=== PATIENT | female | born 1930 | race Asian ===

== ENCOUNTER 2017-03-12 08:22 | Emergency (ER) | payer OTHER ==
[~2017-03-12] VITALS: Ht 152.4 cm; Wt 47.8 kg
[~2017-03-12 08:22] MED LIST: ADV25050 INH; AMLO-147 PO; CALC500T99 PO; CEPH500C PO; FAMO-18 PO; LEVO75TA5 PO; LOSA100T7 PO; METF500T4 PO; OMEG-135 PO; TRAM50TA2 PO
[2017-03-12 08:24] VITALS: Ht 152.4 cm; Wt 47.8 kg
[2017-03-12] MEDS ORDERED: FAMOTIDINE 20 MG INJ IV STA (09:02)
[2017-03-12] MEDS ORDERED: SOD CHLORIDE 0.9% 500 ML IV STA (09:02)
[2017-03-12] MEDS ORDERED: ONDANSETRON 4 MG INJ IV STA (09:02)
[2017-03-12 09:40] LABS: ADD SCAN DIFF NO
[2017-03-12 09:42] LABS: BASOPHILS % 0.2 % (0.0-2.0); EOSINOPHILS % 0.1 % (0.0-7.0); HEMATOCRIT 44.5 % (37.0-47.0); HEMOGLOBIN 13.8 g/dl (12.0-16.0); LYMPHOCYTES # 0.8 10^3/ul (0.8-2.9); LYMPHOCYTES % 6.5 % (15.0-51.0); MEAN CORPUSCULAR HEMOGLOBIN 22.5 pg (29.0-33.0); MEAN CORPUSCULAR VOLUME 72.5 fl (82.0-101.0); MEAN PLATELET VOLUME 11.2 fl (7.4-10.4); MONOCYTE # 0.5 10^3/ul (0.3-0.9); MONOCYTES % 4.1 % (0.0-11.0); NEUTROPHIL # 10.7 10^3/ul (1.6-7.5); NEUTROPHILS % 88.7 % (39.0-77.0); PLATELET COUNT 189 10^3/UL (140-415); RED BLOOD COUNT 6.14 10^6/ul (4.20-5.40); RED CELL DISTRIBUTION WIDTH 13.8 % (11.5-14.5)
[2017-03-12 09:54] LABS: ALBUMIN 4.4 g/dl (3.3-4.9)
[2017-03-12 09:55] LABS: CHLORIDE 100 mmol/L (97-110); POTASSIUM 3.8 mmol/L (3.5-5.1); SODIUM 143 mmol/L (135-144)
[2017-03-12] MEDS ORDERED: ADV10050 INHALATION (09:56)
[2017-03-12] MEDS ORDERED: FAMO40TA52 PO (09:56)
[2017-03-12] MEDS ORDERED: AMLO5TAB4 PO (09:56)
[2017-03-12 09:57] LABS: ALBUMIN/GLOBULIN RATIO 1.02; ALKALINE PHOSPHATASE 86 IU/L (42-121); ANION GAP 22 (8-16); ASPARTATE AMINO TRANSFERASE 101 IU/L (15-46); BILIRUBIN,INDIRECT 1.6 mg/dl (0-1.1); BILIRUBIN,TOTAL 1.6 mg/dl (0.2-1.3); BLOOD UREA NITROGEN 14 mg/dl (7-20); CARBON DIOXIDE 25 mmol/L (21-31); CREATININE 0.84 mg/dl (0.44-1.00); TOTAL PROTEIN 8.7 g/dl (6.1-8.1)
[2017-03-12] MEDS ORDERED: RIVA20TA PO (09:57)
[2017-03-12] MEDS ORDERED: METO25TA7 PO (09:57)
[2017-03-12 09:58] LABS: ALANINE AMINOTRANSFERASE 61 IU/L (13-69); CALCIUM 9.9 mg/dl (8.4-10.2); GLUCOSE 195 mg/dl (70-220)
[2017-03-12 10:18] LABS: TROPONIN-I < 0.012 ng/ml (0.00-0.12)
[2017-03-12] MEDS ORDERED: SOD CHLORIDE 0.9% 100 ML ONE (12:02)
[2017-03-12] MEDS ORDERED: IODIXANOL LOCM 100 ML BTL ONE (12:02)
--- NOTE | 2017-03-12 12:42 | RADRPT ---
PROCEDURE: CT Abdomen and Pelvis with contrast. CLINICAL INDICATION: Abdominal pain. TECHNIQUE: CT scan of the abdomen and pelvis with contrast was performed on a multi-detector high- resolution CT scanner. The patient was scanned following the uncomplicated intravenous administrati on of 100 cc of Visipaque 320. Coronal and sagittal reformatted images were obtained from the axial source images. Images were reviewed on a high-resolution PACS workstation. The total exam CTDI equa ls 11.58 mGy and the total exam DLP equals 621.06 mGy-cm. One or more of the following dose reduction techniques were used: Automated exposure control. Adjustment of the mA and/or kV according to patient size. Use of iterative reconstruction technique. COMPARISON: None. FINDINGS: CT abdomen: The lung bases are remarkable for mild bibasilar atelectasis/linear scarring. The heart size is enl arged, without pericardial thickening or effusion. There is a nodular contour of the liver in keeping with cirrhosis. No suspicious focal liver mass i s identified. There are small caliber paraesophageal , perigastric and perisplenic varices. The po rtal venous system is patent. There is no ascites. The spleen is normal in size. The stomach is partially collapsed, but is grossly unremarkable. The pancreas as visualized is norm al. The gallbladder is surgically absent. There is no evidence for biliary dilatation. The adrena l glands are symmetric and normal. The kidneys are symmetrically unremarkable as well. No renal ca lculus or obstructive uropathy or mass lesion is seen. There is approximately 1.5 cm exophytic corti easton cyst in the lower pole left kidney. The aorta is of normal caliber. Aortic vascular calcifications are present. There is no retroperit veliz lymphadenopathy. The sarmad hepatis region is clear. The bowel and mesentery, as visualized, are equally unremarkable. There is a small hiatal hernia. Scattered colonic diverticula are seen wit hout evidence of acute diverticulitis. CT pelvis: The small bowel loops situated within the pelvis are unremarkable. There is a normal appendix. Uteru s is surgically absent. The pelvic sidewalls and inguinal regions are clear. The sigmoid colon and rectum are unremarkable. No mass, lymphadenopathy, or free fluid is seen. No acute inflammation i s seen. The bladder is normal. The surrounding osseous structures are unremarkable. No osteolytic or osteoblastic lesion is detected. IMPRESSION: 1. Morphologic changes of cirrhosis. No suspicious focal liver mass is identified. 2. Small caliber paraesophageal, perigastric and perisplenic varices. Portal venous system is her nt. 3. No ascites. 4. Small hiatal hernia. 5. A few scattered colonic diverticuli without evidence of acute diverticulitis. 6. Aortoiliac atherosclerosis. 7. Normal appendix. RPTAT: BB .Ottoniel Oneill MD, MD Date Time Electronically viewed and signed by .Ottoniel Oneill MD, on 03/12/2017 12:41 .O/
[2017-03-12] MEDS ORDERED: RANI150T9 PO (13:39)
[2017-03-12] MEDS ORDERED: ONDA4TAB14 PO (13:39)
--- NOTE | 2017-03-12 13:48 | ERD ---
ER Documentation Chief Complaint Date/Time DATE: 03/12/17 TIME: 13:45 Chief Complaint vomiting and diarrhea HPI This is an 86-year-old female who had 3 episodes of nonbilious nonbloody vomiting today. First episode was at 2 AM. She said that she has had one mild loose stool. She has no abdominal pain no fever. Patient states she thinks she ate some bad food. She has no chest pain shortness of breath no back pain dysuria hematuria. Currently she is asymptomatic and says she feels okay patient has multiple medical problems including atrial fibrillation, diabetes, high cholesterol, thyroid ROS All systems reviewed and are negative except as per history of present illness. Medications Home Meds Active Scripts Ranitidine Hcl* (Zantac*) 150 Mg Tablet, 150 MG PO BID Y for EPIGASTRIC PAIN, # 30 TAB Prov:CHESTER WHITNEY DO 03/12/17 Ondansetron (Ondansetron Odt) 4 Mg Tab.rapdis, 4 MG PO Q6H Y for NAUSEA AND/OR VOMITING, #10 TAB Prov:CHESTER WHITNEY DO 03/12/17 Reported Medications Metoprolol Succinate* (Toprol XL*) 25 Mg Tab.sr.24h, 25 MG PO DAILY, #30 TAB 03/12/17 Rivaroxaban* (Xarelto*) 20 Mg Tablet, 20 MG PO WITH DINNER, TAB 03/12/17 Salmeterol Xinaf-Fluticasone* (Advair*) 100/50 Diskus Inhaler, 1 INH INHALATION BID, #1 INHALER 03/12/17 Famotidine* (Famotidine*) 40 Mg Tablet, 40 MG PO BID, #60 TAB 03/12/17 Amlodipine Besylate* (Norvasc*) 5 Mg Tablet, 5 MG PO DAILY, TAB 03/12/17 Losartan Potassium* (Losartan Potassium*) 100 Mg Tablet, 100 MG PO DAILY, TAB 12/21/14 Levothyroxine Sodium* (Levothyroxine Sodium*) 75 Mcg Tablet, 75 MCG PO AC BREAKFAST, TAB 12/21/14 Metformin* (Glucophage*) 500 Mg Tab, 500 MG PO BID, TAB 12/21/14 Discontinued Reported Medications Cephalexin* (Cephalexin*) 500 Mg Capsule, 500 MG PO Q6, CAP 12/21/14 Famotidine* (Pepcid*) 20 Mg Tablet, 20 MG PO DAILY Y for GASTROINTESTINAL UPSET , TAB 12/21/14 Tramadol HCl (Tramadol HCl) 50 Mg Tab, 50 MG PO DAILY Y for SEVERE PAIN LEVEL 7- 10, TAB 12/21/14 Fish Oil* (Fish Oil*) 1,000 Mg Cap, 1000 MG PO DAILY, CAP 12/21/14 Calcium Carbonate ([id number]) 1 Tab Tablet, 1 TAB PO DAILY 12/21/14 Salmeterol Xinaf/Fluticasone* (Advair*) 250-50 Diskus Inhaler, 1 INH INH BID, INH 12/21/14 Amlodipine Besylate* (Amlodipine Besylate*) 10 Mg Tablet, 10 MG PO DAILY, TAB 12/21/14 Allergies Allergies: Coded Allergies: Sulfa (Sulfonamide Antibiotics) (Verified Allergy, Severe, 03/12/17) PMhx/Soc History of Surgery: No Anesthesia Reaction: No Hx Neurological Disorder: No Hx Respiratory Disorders: No Hx Cardiac Disorders: No Hx Psychiatric Problems: No Hx Miscellaneous Medical Probl: Yes Hx Alcohol Use: No Hx Substance Use: No Hx Tobacco Use: No Smoking Status: Never smoker FmHx Family History: No coronary disease Physical Exam Vitals Vital Signs Date Time Temp Pulse Resp B/P Pulse Ox O2 Delivery O2 Flow Rate FiO2 03/12/17 08:24 97.7 109 20 142/81 99 Physical Exam Const: Well-developed, well-nourished Head: Atraumatic, normocephalic Eyes: Normal Conjunctiva, PERRLA, EOMI, normal sclera, no nystagmus ENT: Normal External Ears, Nose and Mouth, moist mucus membranes. Neck: Full range of motion. No meningismus, no lymphadenopathy. Resp: Clear to auscultation bilaterally, no wheezing, rhonchi, rales Cardio: Regular rate and rhythm, no murmurs, S1 S2 present] Abd: Soft, non tender x 4, non distended. Normal bowel sounds, no guarding or rebound, no pulsitile abdominal masses or bruits Skin: No petechiae or rashes, no ecchymosis , no maculopapular rash Back: No midline or flank tenderness Ext: No cyanosis, or edema, FROM x 4, normal inspection, neurovascularly intact x 4 Neur: Awake and alert, STR 5/5 x 4, sensation intact x 4, no focal findings, cerebellum intact Psych: Normal Mood and Affect Result Diagram: 03/12/1792603/12/17926 Results 24 hrs Laboratory Tests Test 03/12/17 09:27 White Blood Count 12.010^3/ul Red Blood Count 6.1410^6/ul Hemoglobin 13.8g/dl Hematocrit 44.5% Mean Corpuscular Volume 72.5fl Mean Corpuscular Hemoglobin 22.5pg Mean Corpuscular Hemoglobin Concent 31.0g/dl Red Cell Distribution Width 13.8% Platelet Count 41312^3/UL Mean Platelet Volume 11.2fl Neutrophils % 88.7% Lymphocytes % 6.5% Monocytes % 4.1% Eosinophils % 0.1% Basophils % 0.2% Nucleated Red Blood Cells % 0.0/100WBC Neutrophils # 10.710^3/ul Lymphocytes # 0.810^3/ul Monocytes # 0.510^3/ul Eosinophils # 0.010^3/ul Basophils # 0.010^3/ul Nucleated Red Blood Cells # 0.010^3/ul Sodium Level 143mmol/L Potassium Level 3.8mmol/L Chloride Level 100mmol/L Carbon Dioxide Level 25mmol/L Anion Gap 22 Blood Urea Nitrogen 14mg/dl Creatinine 0.84mg/dl Glucose Level 195mg/dl Calcium Level 9.9mg/dl Total Bilirubin 1.6mg/dl Direct Bilirubin 0.00mg/dl Indirect Bilirubin 1.6mg/dl Aspartate Amino Transf (AST/SGOT) 101IU/L Alanine Aminotransferase (ALT/SGPT) 61IU/L Alkaline Phosphatase 86IU/L Troponin I < 0.012ng/ml Total Protein 8.7g/dl Albumin 4.4g/dl Globulin 4.30g/dl Albumin/Globulin Ratio 1.02 Lipase 147U/L Current Medications Medications (Trade) Dose Ordered Sig/Amandeep Route PRN Reason Start Time Stop Time Status Last Admin Dose Admin Sodium Chloride (NS) 500 ml @ 500 mls/hr Q1H STAT IV 03/12/17 09:02 03/12/17 10:01 DC Ondansetron HCl (Zofran Inj) 4 mg ONCE STAT IV 03/12/17 09:02 03/12/17 09:04 DC 03/12/17 12:28 Famotidine (Pepcid Iv) 20 mg ONCE STAT IV 03/12/17 09:02 03/12/17 09:04 DC 03/12/17 12:28 IV Flush 10 ml 10 ml STK-MED ONCE .ROUTE 03/12/17 12:02 03/12/17 12:03 DC 03/12/17 12:22 Sodium Chloride (NS) 100 ml @ ud STK-MED ONCE .ROUTE 03/12/17 12:02 03/12/17 12:03 DC 03/12/17 12:22 Iodixanol (Visipaque Locm) 100 ml STK-MED ONCE .ROUTE 03/12/17 12:02 03/12/17 12:03 DC 03/12/17 12:22 Procedures/MDM EKG: Rate/Rhythm: Atrial fibrillation with a heart rate of 103 QRS, ST, QT: NORMAL ME, QRS, QT] Impression: Atrial fibrillation PROCEDURE: CT Abdomen and Pelvis with contrast. CLINICAL INDICATION: Abdominal pain. TECHNIQUE: CT scan of the abdomen and pelvis with contrast was performed on a multi-detector high-resolution CT scanner. The patient was scanned following the uncomplicated intravenous administration of 100 cc of Visipaque 320. Coronal and sagittal reformatted images were obtained from the axial source images. Images were reviewed on a high-resolution PACS workstation. The total exam CTDI equals 11.58 mGy and the total exam DLP equals 621.06 mGy-cm. One or more of the following dose reduction techniques were used: Automated exposure control. Adjustment of the mA and/or kV according to patient size. Use of iterative reconstruction technique. COMPARISON: None. FINDINGS: CT abdomen: The lung bases are remarkable for mild bibasilar atelectasis/linear scarring. The heart size is enlarged, without pericardial thickening or effusion. There is a nodular contour of the liver in keeping with cirrhosis. No suspicious focal liver mass is identified. There are small caliber paraesophageal , perigastric and perisplenic varices. The portal venous system is patent. There is no ascites. The spleen is normal in size. The stomach is partially collapsed, but is grossly unremarkable. The pancreas as visualized is normal. The gallbladder is surgically absent. There is no evidence for biliary dilatation. The adrenal glands are symmetric and normal. The kidneys are symmetrically unremarkable as well. No renal calculus or obstructive uropathy or mass lesion is seen. There is approximately 1.5 cm exophytic cortical cyst in the lower pole left kidney. The aorta is of normal caliber. Aortic vascular calcifications are present. There is no retroperitoneal lymphadenopathy. The sarmad hepatis region is clear. The bowel and mesentery, as visualized, are equally unremarkable. There is a small hiatal hernia. Scattered colonic diverticula are seen without evidence of acute diverticulitis. CT pelvis: The small bowel loops situated within the pelvis are unremarkable. There is a normal appendix. Uterus is surgically absent. The pelvic sidewalls and inguinal regions are clear. The sigmoid colon and rectum are unremarkable. No mass, lymphadenopathy, or free fluid is seen. No acute inflammation is seen. The bladder is normal. The surrounding osseous structures are unremarkable. No osteolytic or osteoblastic lesion is detected. IMPRESSION: 1. Morphologic changes of cirrhosis. No suspicious focal liver mass is identified. 2. Small caliber paraesophageal, perigastric and perisplenic varices. Portal venous system is patent. 3. No ascites. 4. Small hiatal hernia. 5. A few scattered colonic diverticuli without evidence of acute diverticulitis. 6. Aortoiliac atherosclerosis. 7. Normal appendix. RPTAT: BB .Ottoniel Oneill MD, Date Time Electronically viewed and signed by .Ottoniel Oneill MD, on 03/12/2017 12:41 .O/ CC: CHESTER WHITNEY DO No evidence of acute pathology. The patient is feeling very well currently. She states she wants to eat. She was given a sandwich and tolerated a sandwich. As likely she has some type of viral gastroenteritis versus bad food exposure. We will discharge her home on Zofran and Zantac. I confirmed with the family here the patient does in fact have atrial fibrillation is seen on her EKG Departure Diagnosis: Primary Impression: Vomiting Vomiting type: unspecified Vomiting Intractability: non-intractable Nausea presence: with nausea Qualified Code: R11.2 - Non-intractable vomiting with nausea, unspecified vomiting type Additional Impression: Nausea, vomiting, and diarrhea Condition: Stable Patient Instructions: Vomiting (4Y-Adult) Referrals: AISLINN TIJERINA (PCP) CHESTER WHITNEY DO Mar 12, 2017 13:48
[2017-03-12 14:41] VITALS: BP 134/71; PULSE 86; RESP 20; TEMP 98.3
== END 2017-03-12 14:43 | disposition home or self-care (01) ==
LOC: E/R 08:22
DX: R11.2 Nausea with vomiting, unspecified (principal); R19.7 Diarrhea, unspecified; R40.2142 Coma scale, eyes open, spontaneous, at arrival to emergency department; R40.2252 Coma scale, best verbal response, oriented, at arrival to emergency department; R40.2362 Coma scale, best motor response, obeys commands, at arrival to emergency department; Z79.84 Long term (current) use of oral hypoglycemic drugs
CPT/HCPCS: 74177; 80053; 83690; 84484; 85025; 93005; J2405; J7040; Q9967; 36415; 96374; 96375